=== PATIENT | female | born 1995 | race Caucasian/White ===

== ENCOUNTER 2017-09-03 13:57 | Emergency (ER) | payer OTHER ==
[~2017-09-03] VITALS: Ht 170.2 cm; Wt 62.7 kg
[2017-09-03 14:07] VITALS: TEMP 36.7; Ht 170.2 cm; Wt 62.7 kg
[2017-09-03] MEDS ORDERED: BUPIVACAINE 0.25% 30 ML VIAL ONE (14:24)
--- NOTE | 2017-09-03 14:25 | EMERGENCY ROOM VISIT NOTE ---
ED Visit Note First contact with patient: 14:12 CHIEF COMPLAINT: Right thumb laceration HISTORY OF PRESENT ILLNESS: This 22-year-old female patient presents to the emergency department by private vehicle after cutting the right thumb on a piece of broken glass. The bleeding has not stopped, but has been controlled by applying pressure. Denies weakness or numbness/tingling of the finger. The patient has full range of motion of the fingers. The patient rates the pain as throbbing and 7/10. The patient denies any other injuries. The patient's tetanus shot is up to date. She is right-hand dominant. REVIEW OF SYSTEMS: A 6 system review of systems was completed with positives and pertinent negatives listed in the HPI. ALLERGIES: No known allergies MEDICATIONS: No current medications PMH: No significant past medical or surgical history SOCIAL HISTORY: Lives at home. She is a [employer] student. She denies tobacco use. PHYSICAL EXAM: Vital Signs: Reviewed Nurse's notes, vital signs stable. GENERAL : Pleasant and cooperative, in no acute distress, but does appear in pain, well developed, well nourished. SKIN: There is a 2.5 cm long laceration on the volar aspect of the distal right thumb. The edges gape apart with traction. There is no foreign material in the wound and it looks clean. There is moderate bleeding. No deep structures such as tendons, bones, or significant blood vessels are seen in the base of the wound. Extension and flexion of the finger is full and strong. Full range of motion of the wrist and other fingers. Capillary refill less than 2 seconds. Normal sensation to light and sharp touch. EMERGENCY DEPARTMENT COURSE: I examined the patient. Verbal consent was obtained from the patient to perform the procedure. Using sterile technique the wound was cleansed with Betadine. 2 ml of 50/50 solution of 1% buffered lidocaine and 0.25% bupivacaine was used to perform a digital block to anesthetize the right thumb. The area was sterilely draped. Once the patient was anesthetized, the wound was copiously irrigated under pressure with sterile saline. The wound was explored and there were no deep structures injured. The laceration was repaired using 6 simple interrupted 5-0 nylon sutures. The patient tolerated the procedure well. Hemostasis was achieved. The area was cleaned with sterile saline and dressed with bacitracin ointment and bandage. Patient was educated regarding wound care, follow-up for suture removal, and return precautions, she verbalized understanding. Patient was discharged home in stable condition and ambulatory. Current/Historical Medications Scheduled Control Pills ( Control Pills), 1 TAB PO DAILY Allergies Coded Allergies: BEE STING (Unverified Allergy, Severe, anaphylaxis, 09/03/17) Vital Signs Date Time Temp Pulse Resp B/P (MAP) Pulse Ox O2 Delivery O2 Flow Rate FiO2 09/03/17 15:19 81 18 129/76 100 09/03/17 14:07 36.7 88 18 138/84 100 Room Air Departure Information Impression Primary Impression: Laceration of right thumb Dispostion Home / Self-Care Condition GOOD Referrals No Doctor, Assigned (PCP) Patient Instructions ED Laceration Hand, My [facility] Additional Instructions You have been evaluated and treated in the emergency department today for your right thumb laceration. You received 6 sutures to your right thumb. Follow-up with your PCP, in urgent care, or ER for suture removal in 8-10 days. Keep wound clean and dry. Do not allow any crusting or dried blood to accumulate on sutures. If this occurs, use a 1:1 solution of hydrogen peroxide/ water on a Q-tip to clean the wound. Do not submerge the wound under water until the sutures have been removed. Use an antibiotic ointment for 3-4 days, then let wound dry. Keep covered with a Band-Aid. Ice and elevate for swelling and pain. Ibuprofen 600 mg and Tylenol 650 mg every 6 hours as needed for pain. As with all lacerations, there may be temporary or permanent nerve damage or scarring. Keep covered when in sun until sutures removed then SPF 50 or higher for one year. Vitamin E oil if desired two weeks after suture removal for reduction of scar. Please seek immediate medical attention for any signs of infection (increasing redness, severe swelling, increased pain, pus drainage, streaking up the hand/ arm, fever/chills), or for any other concerns. Problem Qualifiers Primary Impression: Laceration of right thumb Encounter type: initial encounter Damage to nail status: without damage Foreign body presence: without foreign body Qualified Codes: S61.011A - Laceration without foreign body of right thumb without damage to nail, initial encounter
[2017-09-03] MEDS ORDERED: LIDOCAINE 1% BUFFERED INJ 5 ML VIAL INFIL ONE (14:30)
[2017-09-03] MEDS ORDERED: BUPIVACAINE 0.25% 30 ML VIAL INFIL ONE (14:30)
[2017-09-03] MEDS ORDERED: BUPIVACAINE 0.5 % 5 MG/1 ML MPF 30ML VIAL INFIL ONE (14:30)
[2017-09-03] MEDS ORDERED: BCPILLS PO (15:06)
[2017-09-03 15:19] VITALS: BP 129/76; PULSE 81; O2SAT 100
== END 2017-09-03 15:20 | disposition home or self-care (01) ==
LOC: C.EDB 13:59 → C.EDD 15:20
DX: S61.011A Laceration without foreign body of right thumb without damage to nail, initial encounter (principal); W25.XXXA Contact with sharp glass, initial encounter; Z79.3 Long term (current) use of hormonal contraceptives; Z91.030 Bee allergy status